=== PATIENT | female | born 1965 | race Caucasian/White ===

== ENCOUNTER 2017-08-13 16:09 | Emergency (ER) | payer SELFPAY ==
[~2017-08-13] VITALS: Ht 162.6 cm; Wt 60.0 kg
[~2017-08-13 16:09] MED LIST: FAMO1TAB37 PO; MEDR4PAK PO
[2017-08-13 16:10] VITALS: BP 141/61; PULSE 87; RESP 18; TEMP 98.8; O2SAT 99
[2017-08-14] MEDS ORDERED: CLIN1CAP6 PO (21:26)
[2017-08-14] MEDS ORDERED: NORC5TAB PO (21:27)
== END 2017-08-13 17:30 | disposition left against medical advice (07) ==
LOC: NED 16:09
DX: M25.562 Pain in left knee (principal); Z53.21 Procedure and treatment not carried out due to patient leaving prior to being seen by health care provider
CPT/HCPCS: 99281

== ENCOUNTER 2017-08-14 18:50 | Emergency (ER) | payer OTHER ==
[~2017-08-14] VITALS: Ht 162.6 cm; Wt 55.0 kg
[2017-08-14 18:59] VITALS: BP 153/91; PULSE 105; RESP 18; TEMP 99.1; O2SAT 96
--- NOTE | 2017-08-14 19:00 | PD ---
Physical Exam Date Seen by Provider: Aug 14, 2017 Time Seen by Provider: 18:57 Narrative 32-year-old female presents the emergency department with increasing pain, swelling, heat, and abscess to the left medial anterior knee. She states pain in the joint itself. She denies fever or chills. Patient states recent treatment for skin lesions reportedly for "getting part from working with concrete". She was treated by [facility] with Keflex and Bactrim, but she only took the Bactrim. Patient has had 3 days of increasing pain swelling and erythema and warmth in the left knee. Patient is currently using a cane which she normally does not need to. She has no known drug allergies. [facility] Medical Record Reviewed: Yes Supervised Visit with FARZANEH: Yes Narrative Course Vital signs are reviewed. Patient is awaiting mental health placement. Condition: Stable Johan Mosley Aug 14, 2017 19:00
--- NOTE | 2017-08-14 19:24 | PD ---
HPI Chief Complaint: Skin Problem Time Seen by Provider: 19:13 Travel History International Travel<30 days: No Contact w/Intl Traveler<30days: No Traveled to known affect area: No History of Present Illness HPI Patient is 52-year-old female presents emergency department for evaluation of left knee swelling pain and redness. The patient states that several days ago she was working re[employer] and she spilled some concrete on herself and thinks she had some [place] from concrete. She went to [facility] was told she had some mild cellulitis and was prescribed Keflex and Bactrim but she is only taking the Keflex. She states 3 days ago she went to [facility]. In that 3 days duration the pain and swelling of gotten worse and it's come to ahead in the anterior portion over her patella. Denies any fevers denies any nausea vomiting denies any history of IV drug abuse. PFSH Past Medical History Hx Anticoagulant Therapy: No Arthritis: Yes Cardiovascular Problems: No Chemotherapy: No Cerebrovascular Accident: No Diabetes: No Diminished Hearing: No Hepatitis: Yes (C) Medical other: Yes (CARPAL TUNNEL) Respiratory: Yes (COPD) Tetanus Vaccination: Unknown Influenza Vaccination: No ?: Not Past Surgical History Genitourinary Surgery: Yes Hysterectomy: No Tonsillectomy: Yes Social History Alcohol Use: Yes Tobacco Use: Yes (1PPD) Substance Use: No Allergies-Medications (Allergen,Severity, Reaction): Coded Allergies: No Known Allergies (Unverified , 08/14/17) Reported Meds & Prescriptions Reported Meds & Active Scripts Active [place] (Hydrocodone-Acetaminophen) 5-325 mg Tab 1 Tab PO Q6H PRN Clindamycin (Clindamycin HCl) 300 Mg Cap 300 Mg PO Q6H 10 Days Review of Systems Except as stated in HPI: all other systems reviewed are Neg Physical Exam Narrative GENERAL: Well-developed well-nourished no obvious distress. SKIN: Focused skin assessment warm/dry. HEAD: Atraumatic. Normocephalic. EYES: Pupils equal and round. No scleral icterus. No injection or drainage. ENT: No nasal bleeding or discharge. Mucous membranes pink and moist. NECK: Trachea midline. No JVD. CARDIOVASCULAR: Regular rate and rhythm. No murmur appreciated. RESPIRATORY: No accessory muscle use. Clear to auscultation. Breath sounds equal bilaterally. GASTROINTESTINAL: Abdomen soft, non-tender, nondistended. Hepatic and splenic margins not palpable. MUSCULOSKELETAL: No obvious deformities. No clubbing. No cyanosis. No edema. Fairly significant soft tissue swelling over the left knee, there is cellulitis both above and below the knee fairly limited to the anterior surface. There is a small fluctuant area in the anterior portion over the patella consistent with infectious bursitis. Range of motion is intact albeit painful. Pulses motor and sensory intact distally in all 4 extremity's. Compartments are soft. NEUROLOGICAL: Awake and alert. No obvious cranial nerve deficits. Motor grossly within normal limits. Normal speech. PSYCHIATRIC: Appropriate mood and affect; insight and judgment normal. Data Data Last Documented VS Vital Signs Date Time Temp Pulse Resp B/P (MAP) Pulse Ox O2 Delivery O2 Flow Rate FiO2 08/14/17 22:38 08/14/17 19:37 15 98 Room Air 08/14/17 18:59 99.1 105 Orders Orders Basic Metabolic Panel (Bmp) (08/14/17 19:21) Complete Blood Count With Diff (08/14/17 19:21) Iv Access Insert/Monitor (08/14/17 19:21) Ecg Monitoring (08/14/17 19:21) Oximetry (08/14/17 19:21) Sodium Chloride 0.9% Flush (Ns Flush) (08/14/17 19:30) Acetamin-Hydrocod 325-5 Mg ([place] 5-325 (08/14/17 19:30) Lidocai-Epi 1%-1:100,000 Inj (Xylocaine- (08/14/17 19:30) Clindamycin Inj (Cleocin Inj) (08/14/17 21:00) Morphine Inj (Morphine Inj) (08/14/17 21:15) Morphine Inj (Morphine Inj) (08/14/17 21:16) Wound Culture And Gram Stain (08/14/17 21:24) Ed Discharge Order (08/14/17 21:27) Labs Laboratory Tests Test 08/14/17 19:10 08/14/17 19:20 White Blood Count 14.5 TH/MM3 Red Blood Count 4.12 MIL/MM3 Hemoglobin 13.7 GM/DL Hematocrit 39.9 % Mean Corpuscular Volume 96.7 FL Mean Corpuscular Hemoglobin 33.2 PG Mean Corpuscular Hemoglobin Concent 34.3 % Red Cell Distribution Width 13.6 % Platelet Count 336 TH/MM3 Mean Platelet Volume 7.6 FL Neutrophils (%) (Auto) 67.4 % Lymphocytes (%) (Auto) 16.3 % Monocytes (%) (Auto) 12.6 % Eosinophils (%) (Auto) 3.0 % Basophils (%) (Auto) 0.7 % Neutrophils # (Auto) 9.8 TH/MM3 Lymphocytes # (Auto) 2.4 TH/MM3 Monocytes # (Auto) 1.8 TH/MM3 Eosinophils # (Auto) 0.4 TH/MM3 Basophils # (Auto) 0.1 TH/MM3 CBC Comment DIFF FINAL Differential Comment Blood Urea Nitrogen 11 MG/DL Creatinine 0.64 MG/DL Random Glucose 91 MG/DL Calcium Level 8.6 MG/DL Sodium Level 135 MEQ/L Potassium Level 3.8 MEQ/L Chloride Level 100 MEQ/L Carbon Dioxide Level 27.1 MEQ/L Anion Gap 8 MEQ/L Estimat Glomerular Filtration Rate 97 ML/MIN MDM Medical Decision Making Medical Screen Exam Complete: Yes Emergency Medical Condition: Yes Differential Diagnosis Septic arthritis unlikely, infectious bursitis probable, sepsis possible. Narrative Course Patient roomed emergency department, basic labs drawn for comparison should there be needed in the future. Patient had I&D performed of the anterior bursa by PA. Wound culture sent, will start on clindamycin. Discussed with the patient returned ED in 48 hours, discussed symptomatic control at home, discussed return to ED criteria. She stable for discharge. Diagnosis Primary Impression: Other infective bursitis, left knee Additional Instructions: It is imperative that you fill and take your clindamycin (antibiotic). Continue your other antibiotic(s) until they are all gone. Return to the emergency department in 48 hours for a wound check. Med/Other Pt SpecificInfo: Prescription(s) given Scripts Hydrocodone-Acetaminophen ([place]) 5-325 mg Tab 1 TAB PO Q6H Y for PAIN, #10 TAB 0 Refills Prov: Gordon Salazar MD 08/14/17 Clindamycin (Clindamycin) 300 Mg Cap 300 MG PO Q6H for Infection for 10 Days, #40 CAP 0 Refills Prov: Gordon Salazar MD 08/14/17 Disposition: 01 DISCHARGE HOME Condition: Stable Gordon Salaazr MD Aug 14, 2017 19:24
[2017-08-14] MEDS ORDERED: LIDOCAINE 1%/EPINEPHrine 1:100,000 SOLN 20 ML VIAL INFIL ONE (19:30)
[2017-08-14] MEDS ORDERED: ACETAMINOPHEN/HYDROcodone 325 MG/5 MG TAB PO ONE (19:30)
[2017-08-14] MEDS ORDERED: SODIUM CHLORIDE 0.9% FLUSH 10 ML FLUSH IV FLUSH PRN (19:30)
[2017-08-14 19:37] VITALS: RESP 15; O2SAT 98
[2017-08-14 20:10] LABS: AUTOMATED NEUTROPHIL # 9.8 TH/MM3 (1.8-7.7); BASOPHIL # 0.1 TH/MM3 (0-0.2); BASOPHIL % 0.7 % (0.0-2.0); EOSINOPHIL # 0.4 TH/MM3 (0-0.4); HEMATOCRIT 39.9 % (35.0-46.0); HEMO FLAGS DIFF FINAL; LYMPH % 16.3 % (9.0-44.0); LYMPHOCYTE # 2.4 TH/MM3 (1.0-4.8); MEAN CELL VOLUME 96.7 FL (80.0-100.0); MEAN CORPUSCULAR HEMOGLOBIN 33.2 PG (27.0-34.0); MEAN CORPUSCULAR HGB CONC 34.3 % (32.0-36.0); MONO % 12.6 % (0.0-8.0); NEUT % 67.4 % (16.0-70.0); PLATELET COUNT 336 TH/MM3 (150-450); RED BLOOD COUNT 4.12 MIL/MM3 (4.00-5.30); RED CELL DISTRIBUTION WIDTH 13.6 % (11.6-17.2); WHITE BLOOD COUNT 14.5 TH/MM3 (4.0-11.0)
[2017-08-14 20:38] LABS: BICARBONATE 27.1 MEQ/L (21.0-32.0)
[2017-08-14 20:41] LABS: POTASSIUM 3.8 MEQ/L (3.5-5.1)
[2017-08-14] MEDS ORDERED: CLINDAMYCIN INJ 600 MG in SODIUM CHLORIDE 0.9% INJ 100 ML IV ONE (21:00)
[2017-08-14] MEDS ORDERED: MORPHINE SULFATE 8 MG/ML INJ IV PUSH ONE (21:15)
[2017-08-14] MEDS ORDERED: MORPHINE SULFATE 8 MG/ML INJ ONE (21:16)
--- NOTE | 2017-08-14 21:24 | PD ---
Physical Exam Date Seen by Provider: Aug 14, 2017 Time Seen by Provider: 21:23 Narrative For full H&P please see previous provider's note. I was asked to perform an I&D to left knee. Data Data Last Documented VS Vital Signs Date Time Temp Pulse Resp B/P (MAP) Pulse Ox O2 Delivery O2 Flow Rate FiO2 08/14/17 19:37 15 98 Room Air 08/14/17 18:59 99.1 105 Orders Orders Basic Metabolic Panel (Bmp) (08/14/17 19:21) Complete Blood Count With Diff (08/14/17 19:21) Iv Access Insert/Monitor (08/14/17 19:21) Ecg Monitoring (08/14/17:) Oximetry (08/14/17:) Sodium Chloride 0.9% Flush (Ns Flush) (08/14/17 19:30) Acetamin-Hydrocod 325-5 Mg ([place] 5-325 (08/14/17 19:30) Lidocai-Epi 1%-1:100,000 Inj (Xylocaine- (08/14/17 19:30) Clindamycin Inj (Cleocin Inj) (08/14/17 21:00) Morphine Inj (Morphine Inj) (08/14/17 21:15) Morphine Inj (Morphine Inj) (08/14/17 21:16) Labs Laboratory Tests Test 08/14/17 19:10 08/14/17 19:20 White Blood Count 14.5 TH/MM3 Red Blood Count 4.12 MIL/MM3 Hemoglobin 13.7 GM/DL Hematocrit 39.9 % Mean Corpuscular Volume 96.7 FL Mean Corpuscular Hemoglobin 33.2 PG Mean Corpuscular Hemoglobin Concent 34.3 % Red Cell Distribution Width 13.6 % Platelet Count 336 TH/MM3 Mean Platelet Volume 7.6 FL Neutrophils (%) (Auto) 67.4 % Lymphocytes (%) (Auto) 16.3 % Monocytes (%) (Auto) 12.6 % Eosinophils (%) (Auto) 3.0 % Basophils (%) (Auto) 0.7 % Neutrophils # (Auto) 9.8 TH/MM3 Lymphocytes # (Auto) 2.4 TH/MM3 Monocytes # (Auto) 1.8 TH/MM3 Eosinophils # (Auto) 0.4 TH/MM3 Basophils # (Auto) 0.1 TH/MM3 CBC Comment DIFF FINAL Differential Comment Blood Urea Nitrogen 11 MG/DL Creatinine 0.64 MG/DL Random Glucose 91 MG/DL Calcium Level 8.6 MG/DL Sodium Level 135 MEQ/L Potassium Level 3.8 MEQ/L Chloride Level 100 MEQ/L Carbon Dioxide Level 27.1 MEQ/L Anion Gap 8 MEQ/L Estimat Glomerular Filtration Rate 97 ML/MIN MDM Medical Record Reviewed: Yes Supervised Visit with FARZANEH: Yes Procedures Procedure Narrative After the risks and benefits were discussed the following procedure was performed: INCISION AND DRAINAGE OF ABSCESS: The area was prepped and was sterilely draped. A subcutaneous wheal of 1 % Xylocaine with a total number 1 mL was used to anesthetize the area. The area was properly anesthetized. A number 11 scalpel was used to make a 0.5cm incision across the area of the abscess. Cultures were obtained. The abscess was drained an irrigated with normal saline. Sterile dressing applied. Pt tolerated well. Minimal drainage. Scripts No Active Prescriptions or Reported Meds Condition: Stable Traci Mcintyre [facility] Aug 14, 2017 21:24
[2017-08-14] MEDS ORDERED: CLIN1CAP6 PO (21:26)
[2017-08-14] MEDS ORDERED: NORC5TAB PO (21:27)
== END 2017-08-14 22:44 | disposition home or self-care (01) ==
LOC: NEPE 18:50
DX: M71.162 Other infective bursitis, left knee (principal); B95.62 Methicillin resistant Staphylococcus aureus infection as the cause of diseases classified elsewhere; F17.200 Nicotine dependence, unspecified, uncomplicated; Z87.39 Personal history of other diseases of the musculoskeletal system and connective tissue; Z86.19 Personal history of other infectious and parasitic diseases; Z87.09 Personal history of other diseases of the respiratory system
CPT/HCPCS: 10060; 80048; 85025; 86403; 87070; 87186; 96374; 99284; J2270; 87205